=== PATIENT | male | born 1990 | race African-American/Black ===

== ENCOUNTER → 2016-12-31 | Outpatient (CLI) | payer MEDICAID ==
[2016-12-31 11:47] LABS: ABSOLUTE EOSINOPHILS # (AUTO) 0.1 10^3/uL (0.0-0.6); ABSOLUTE LYMPHOCYTES (AUTO) 1.9 10^3/uL (0.5-4.7); ABSOLUTE MONOCYTES (AUTO) 0.4 10^3/uL (0.1-1.4); ABSOLUTE NEUT (AUTO) 3.7 10^3/uL (1.7-8.2); BASOPHILS % (AUTO) 0.6 % (0-2); EOSINOPHILS % (AUTO) 1.1 % (0-6); HEMATOCRIT 39.7 % (37.9-51.0); HEMOGLOBIN 13.1 g/dL (13.5-17.0); HGB HCT DIFFERENCE -0.4; LYMPHOCYTES % (AUTO) 30.8 % (13-45); MEAN CORPUSCULAR HEMOGLOBIN 28.8 pg (27.0-33.4); MEAN CORPUSCULAR HGB CONC 33.1 g/dL (32.0-36.0); MEAN CORPUSCULAR VOLUME 87 fl (80-97); MONOCYTES % (AUTO) 6.7 % (3-13); RED BLOOD COUNT 4.56 10^6/uL (4.35-5.55); RED CELL DISTRIBUTION WIDTH 13.6 % (11.5-14.0); SEGMENTED NEUTROPHILS % (AUTO) 60.8 % (42-78); WHITE BLOOD COUNT 6.1 10^3/uL (4.0-10.5)
[2016-12-31 12:05] LABS: ALANINE AMINOTRANSFERASE 23 U/L (21-72); ALBUMIN 4.1 g/dL (3.5-5.0); ALKALINE PHOSPHATASE 126 U/L (38-126); ANION GAP 11 (5-19); ASPARTATE AMINO TRANSFERASE 9 U/L (17-59); BILIRUBIN,TOTAL 0.4 mg/dL (0.2-1.3); BLOOD UREA NITROGEN 8 mg/dL (7-20); C-REACTIVE PROTEIN 21.9 mg/L (<10.0); CARBON DIOXIDE 28 mmol/L (22-30); CHLORIDE 102 mmol/L (98-107); CREATININE RESULT 0.56 mg/dL (0.52-1.25); GLUCOSE 86 mg/dL (75-110); POTASSIUM 4.8 mmol/L (3.6-5.0); SODIUM 140.6 mmol/L (137-145)
[2016-12-31 12:28] LABS: ERYTHROCYTE SEDIMENTATION RATE 50 mm/hr (0-15)
== END ==
LOC: OD 10:50
PROVIDERS: ATTEND Nurse Practitioner Family
DX: L89.314 Pressure ulcer of right buttock, stage 4 (principal); L89.324 Pressure ulcer of left buttock, stage 4; L97.512 Non-pressure chronic ulcer of other part of right foot with fat layer exposed
CPT/HCPCS: 36415; 72170; 80053; 85025; 85652; 86140

== ENCOUNTER → 2017-01-20 | Outpatient (CLI) | payer MEDICAID | LOC: RAD 11:30 | PROVIDERS: ATTEND Nurse Practitioner Family | DX: L89.314 Pressure ulcer of right buttock, stage 4 (principal); L97.512 Non-pressure chronic ulcer of other part of right foot with fat layer exposed | CPT/HCPCS: 72197; A9576 ==

== ENCOUNTER → 2017-01-21 | Outpatient (CLI) | payer MEDICAID | LOC: RAD 11:19 | PROVIDERS: ATTEND Nurse Practitioner Family | DX: L89.314 Pressure ulcer of right buttock, stage 4 (principal); L97.512 Non-pressure chronic ulcer of other part of right foot with fat layer exposed; M86.8X7 Other osteomyelitis, ankle and foot | CPT/HCPCS: 73720; A9576 ==

== ENCOUNTER 2017-01-29 10:09 | Day surgery (SDC) | payer MEDICAID ==
[2017-01-29 11:51] VITALS: BP 117/67
[2017-01-29] MEDS ORDERED: VANCOMYCIN HCL 1,000 MG in DEXTROSE 5%-WATER 250 ML IV PRN (13:00)
[2017-01-29] MEDS ORDERED: CEFEPIME HCL 2 GM in DEXTROSE 5%-WATER 100 ML IV PRN (13:00)
[2017-01-29] MEDS ORDERED: NORMAL SALINE 10 ML SDV (AFTER EACH USE) IV PRN (13:36)
[2017-01-29] MEDS ORDERED: NORMAL SALINE 10 ML SDV (SCHEDULED) IV SCH (22:00)
== END 2017-01-29 15:25 | disposition home or self-care (01) ==
LOC: RAD 10:09
PROVIDERS: ATTEND Nurse Practitioner Family
PROC: 05HB33Z Insertion of Infusion Device into Right Basilic Vein, Percutaneous Approach (ICD-10-PCS; principal; 2017-01-29)
DX: M86.159 Other acute osteomyelitis, unspecified femur (principal)
CPT/HCPCS: 96375; 96365; 36569; 77001; 76937; J0692; J7060; J3370; J1642

== ENCOUNTER 2017-02-14 10:07 | Emergency (ER) | payer MEDICAID ==
--- NOTE | 2017-02-14 10:45 | ER Document Report ---
ED Medical Screen (RME) - General Chief Complaint: Abdominal Pain Stated Complaint: POSSIBLE ABSCESS Time seen by provider: 10:43 Mode of Arrival: Wheelchair Information source: Patient Notes: 26-year-old paraplegic had to manually help extract a constipated poop ball from his left stoma an hour and a half ago. After that something dark and red protruded from the stoma center which is not particularly tender. He does think there is more tenderness than usual around his stoma and he thinks his stoma is larger and is friable now and oozing blood. TRAVEL OUTSIDE OF THE [place] IN LAST 30 DAYS: No - Related Data Allergies/Adverse Reactions: vancomycin Allergy (Verified 02/14/17 10:15) Past Medical History - Past Medical History Cardiac Medical History: Denies: Hx Coronary Artery Disease, Hx Heart Attack, Hx Hypertension Pulmonary Medical History: Denies: Hx Asthma, Hx Bronchitis, Hx COPD, Hx Pneumonia Neurological Medical History: Denies: Hx Cerebrovascular Accident, Hx Seizures Renal/ Medical History: Denies: Hx Peritoneal Dialysis Musculoskeltal Medical History: Denies Hx Arthritis - Immunizations Hx Diphtheria, Pertussis, Tetanus Vaccination: No Physical Exam - Vital signs Vitals: Temp Pulse Resp BP Pulse Ox 97.4 F 63 18 112/69 100 02/14/17 10:15 02/14/17 10:15 02/14/17 10:15 02/14/17 10:15 02/14/17 10:15 Course - Vital Signs Vital signs: Temp Pulse Resp BP Pulse Ox 97.4 F 63 18 112/69 100 02/14/17 10:15 02/14/17 10:15 02/14/17 10:15 02/14/17 10:15 02/14/17 10:15
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
[2017-02-14 12:27] VITALS: BP 113/56
== END 2017-02-14 12:33 | disposition home or self-care (01) ==
LOC: ER 10:07
DX: K94.09 Other complications of colostomy (principal); K59.00 Constipation, unspecified; R10.9 Unspecified abdominal pain; F17.210 Nicotine dependence, cigarettes, uncomplicated
CPT/HCPCS: 74022; 99283

== ENCOUNTER 2017-03-19 10:20 | Emergency (ER) | payer MEDICAID ==
[2017-03-19 10:28] VITALS: BP 126/73
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
== END 2017-03-19 10:48 | disposition home or self-care (01) ==
LOC: ER 10:20
DX: T82.898A Other specified complication of vascular prosthetic devices, implants and grafts, initial encounter (principal); F17.200 Nicotine dependence, unspecified, uncomplicated
CPT/HCPCS: 99283

== ENCOUNTER → 2017-04-08 | Outpatient (CLI) | payer MEDICAID ==
--- NOTE | 2017-04-08 12:38 | RADIOLOGY REPORT (SQ) ---
EXAM DESCRIPTION: MRI PELVIS COMBO COMPLETED DATE/TIME: 04/08/2017 11:31 am REASON FOR STUDY: PRESSURE ULCER R/L BUTTOCK STAGE 4 L89.314 PRESSURE ULCER OF RIGHT BUTTOCK, STAGE 4 L89.324 PRESSURE ULCER OF LEFT BUTTOCK, STAGE 4 COMPARISON: MRI pelvis 01/20/2017 CT pelvis 10/12/2010 TECHNIQUE: Multiplanar multisequence imaging performed without and with contrast including axial, sa gittal and coronal T2, axial T, axial gradient fat sat T1, axial, sagittal and coronal fat sat T2 pos t contrast. CONTRAST TYPE AND DOSE: 10 mL Prohance. RENAL FUNCTION: GFR > 60. LIMITATIONS: None. FINDINGS: The patient has bilateral ischial decubitus ulcers. On the right side, appearance of the ulcer and bony hemipelvis is similar compared to 01/21/2017. Th ere is a 4 cm ischial ulcer extending down to the bony surface. There is persistent edema and enhanc ement in the posterior half of the right acetabulum and right ischium. No right hip joint effusion. Overall decrease in soft tissue swelling around the right ischial ulcer, and decrease in contrast enh ancement and asymmetric enlargement of the right obturator internus muscle. The enlarged right pelvi c lymph nodes seen on 01/20/2017 are no longer present. On the left side, a 4 cm ischial decubitus ulcer is present (was 2.5 cm on 01/21/2017). The ulcer is filled with fluid and air with a peripheral rim of enhancement which is more prominent than on the pr ior study from 01/20/2017. There is mild enhancement of obturator internus muscle without deep pelvic abscess. Muscle enhancement is new compared to 01/21/2017. No significant left pelvic adenopathy. There is very subtle contrast enhancement of the posterior ischium adjacent to the ulcer. No left hi p joint effusion. IMPRESSION: Bilateral ischial decubital ulcers as above. TECHNICAL DOCUMENTATION: JOB ID: [id number] [employer]- All Rights Reserved
== END ==
LOC: RAD 09:28
PROVIDERS: ATTEND Nurse Practitioner Family
DX: L89.314 Pressure ulcer of right buttock, stage 4 (principal); L89.324 Pressure ulcer of left buttock, stage 4
CPT/HCPCS: 72197; A9576

== ENCOUNTER 2017-05-23 16:16 | Inpatient (IN) | payer MEDICAID ==
[2017-05-23] MEDS ORDERED: NORMAL SALINE 1000 ML 1,000 ML IV PRN (16:57)
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
[2017-05-23 17:43] LABS: HEMATOCRIT 42.8 % (37.9-51.0); HEMOGLOBIN 14.3 g/dL (13.5-17.0); HGB HCT DIFFERENCE 0.1; MEAN CORPUSCULAR HEMOGLOBIN 29.3 pg (27.0-33.4); MEAN CORPUSCULAR HGB CONC 33.4 g/dL (32.0-36.0); MEAN CORPUSCULAR VOLUME 88 fl (80-97); RED BLOOD COUNT 4.88 10^6/uL (4.35-5.55); RED CELL DISTRIBUTION WIDTH 13.9 % (11.5-14.0)
[2017-05-23 17:55] LABS: ALANINE AMINOTRANSFERASE 22 U/L (21-72); ALBUMIN 4.3 g/dL (3.5-5.0); ALKALINE PHOSPHATASE 159 U/L (38-126); ANION GAP 15 (5-19); ASPARTATE AMINO TRANSFERASE 20 U/L (17-59); BILIRUBIN,DIRECT 0.5 mg/dL (0.0-0.4); BLOOD UREA NITROGEN 8 mg/dL (7-20); CALCIUM 9.2 mg/dL (8.4-10.2); CARBON DIOXIDE 29 mmol/L (22-30); CHLORIDE 94 mmol/L (98-107); CREATINE KINASE 67 U/L (55-170); CREATININE RESULT 0.62 mg/dL (0.52-1.25); GLUCOSE 111 mg/dL (75-110); POTASSIUM 4.1 mmol/L (3.6-5.0); SODIUM 137.5 mmol/L (137-145); TOTAL PROTEIN 8.7 g/dL (6.3-8.2)
[2017-05-23 18:00] LABS: BAND NEUTROPHILS % (MANUAL) 10 % (3-5); BASOPHILS % (MANUAL) 0 % (0-2); EOSINOPHILS % (MANUAL) 0 % (0-6); LYMPHOCYTES % (MANUAL) 5 % (13-45); TOTAL CELLS COUNTED 100
[2017-05-23 18:01] LABS: RBC MORPHOLOGY COMMENT NORMO-CYTIC/CHROMIC
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
[2017-05-23] MEDS ORDERED: MECLIZINE HCL 25 MG TABLET PO ONE (20:47)
[2017-05-23 21:20] LABS: AMORPHOUS SEDIMENT,URINE TRACE /HPF; APPEARANCE,URINE SLIGHTLY-CLOUDY; BILIRUBIN,URINE NEGATIVE (NEGATIVE); GLUCOSE, URINE NEGATIVE (NEGATIVE); KETONES,URINE 20 mg/dL (NEGATIVE); LEUKOCYTE ESTERASE,URINE LARGE (NEGATIVE); NITRITE,URINE NEGATIVE (NEGATIVE); PROTEIN,URINE 30 mg/dL (NEGATIVE); URINE SPECIFIC GRAVITY 1.004
[2017-05-23] MEDS ORDERED: CEFTRIAXONE 1 GM/D5W RTU 50 ML IV ONE (21:28)
[2017-05-23 21:30] LABS: VENOUS BLOOD BASE EXCESS 3.9 mmol/L; VENOUS BLOOD PCO2 45.8 mmHg (35-63); VENOUS BLOOD PH 7.42 (7.30-7.42)
[2017-05-24] MEDS ORDERED: MAGNESIUM HYDROXIDE SUSP 30 ML UDCUP PO PRN ×2 (04:58→14:47)
[2017-05-24] MEDS ORDERED: ACETAMINOPHEN 325 MG TABLET PO PRN (04:58)
[2017-05-24] MEDS ORDERED: IPRATROPIUM/ALBUTEROL 0.5-2.5 MG/3 ML AMPUL NEB PRN (04:58)
[2017-05-24] MEDS ORDERED: PROMETHAZINE HCL 25 MG TABLET PO PRN (05:01)
[2017-05-24] MEDS ORDERED: OXYCODONE HCL IR 5 MG TABLET PO PRN (05:04)
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
[2017-05-24 06:54] LABS: ABSOLUTE LYMPHOCYTES (AUTO) 0.8 10^3/uL (0.5-4.7); ABSOLUTE NEUT (AUTO) 8.5 10^3/uL (1.7-8.2); BASOPHILS % (AUTO) 0.3 % (0-2); HEMATOCRIT 38.1 % (37.9-51.0); HEMOGLOBIN 12.9 g/dL (13.5-17.0); HGB HCT DIFFERENCE 0.6; LYMPHOCYTES % (AUTO) 7.7 % (13-45); MEAN CORPUSCULAR HGB CONC 33.8 g/dL (32.0-36.0); MEAN CORPUSCULAR VOLUME 89 fl (80-97); MONOCYTES % (AUTO) 9.7 % (3-13); RED BLOOD COUNT 4.29 10^6/uL (4.35-5.55); RED CELL DISTRIBUTION WIDTH 13.7 % (11.5-14.0); SEGMENTED NEUTROPHILS % (AUTO) 82.3 % (42-78); WHITE BLOOD COUNT 10.4 10^3/uL (4.0-10.5)
[2017-05-24] MEDS ORDERED: CEFTRIAXONE 1 GM/D5W RTU 50 ML IV SCH (10:00)
[2017-05-24] MEDS: HEPARIN SOD (PORCINE) 5,000 UNIT/ML 1 ML SYRINGE SUBCUT SCH ×2 (10:34→23:40)
[2017-05-24] MEDS: GABAPENTIN 300 MG CAPSULE PO SCH ×2 (10:34→23:36)
--- NOTE | 2017-05-24 12:22 | PDOC PROGRESS REPORT ---
Subjective Progress Note for:: 05/24/17 Subjective:: Patient has no particular complaints other than some back pain which she would like pain medication. Patient denies fever, chills, headache, chest pain, shortness of breath, abdominal pain, nausea, vomiting, diarrhea, constipation. Physical Exam Vital Signs: Temp Pulse Resp BP Pulse Ox 98.0 F 95 12 99/48 L 99 05/24/17 12:00 05/24/17 12:00 05/24/17 12:00 05/24/17 12:00 05/24/17 12:00 Intake & Output 05/23/17 05/24/17 05/25/17 06:59 06:59 06:59 Intake Total 5 118 Output Total 250 Balance 5 -132 GENERAL: No acute distress HEENT: Conjunctiva clear, nonicteric, moist mucous membranes, no JVD, midline trachea RESPIRATORY: Clear to auscultation bilaterally, no wheezes, no rhonchi CARDIAC: Regular rate and rhythm, no murmurs/gallops/rubs ABDOMEN: Soft, nondistended, nontender, positive bowel sounds, no rebound, no guarding EXTREMETIES: No edema, cyanosis, clubbing NEUROLOGIC: Alert, oriented to person/place/time, CN's grossly intact, paraplegia SKIN: stage III right buttock decubitus, stage III left buttock decubitus. Small clean ulcer at tip of right great toe. PSYCH: Normal mood, normal affect Results Laboratory Results: 05/24/17 06:25 05/24/17 06:25 WBC 10.4 RBC 4.29 L Hgb 12.9 L Hct 38.1 MCV 89 MCH 30.0 MCHC 33.8 RDW 13.7 Plt Count 164 Seg Neutrophils % 82.3 H Lymphocytes % 7.7 L Monocytes % 9.7 Eosinophils % 0.0 Basophils % 0.3 Absolute Neutrophils 8.5 H Absolute Lymphocytes 0.8 Absolute Monocytes 1.0 Absolute Eosinophils 0.0 Absolute Basophils 0.0 05/24/17 03:15 Blood Culture - Pending Blood 05/24/17 03:06 Blood Culture - Pending Blood 05/23/17 21:00 Urine Culture - Preliminary Catheterized Urine Gram Negative Rods Assessment & Plan - Diagnosis (1) Sepsis Is this a current diagnosis for this admission?: YesPlan: Patient now afebrile with normal white blood count. Secondary to urinary tract infection. (2) UTI (urinary tract infection) Qualifiers: Urinary tract infection type: site unspecified Is this a current diagnosis for this admission?: YesPlan: Complicated by self-catheterization secondary to paraplegia. Continue IV Rocephin pending further culture and sensitivity. (3) Paraplegia at T9 level Is this a current diagnosis for this admission?: Yes (4) Chronic ulcer of right great toe Qualifiers: Non-pressure ulcer stage: unspecified non-pressure ulcer stage Qualified Code(s): L97.519 - Non-pressure chronic ulcer of other part of right foot with unspecified severity Is this a current diagnosis for this admission?: Yes (5) Decubitus ulcer of left buttock, stage 3 Is this a current diagnosis for this admission?: YesPlan: Patient is followed by wound clinic as an outpatient. (6) Decubitus ulcer of right buttock, stage 3 Is this a current diagnosis for this admission?: Yes - Time Time Spent with patient: 25-34 minutes Anticipated discharge: Home
[2017-05-24] MEDS: OXYCODONE HCL IR 5 MG TABLET PO PRN (20:55)
[2017-05-24] MEDS: ZOLPIDEM TARTRATE 5 MG TABLET PO PRN (23:38)
[2017-05-25 06:32] LABS: HEMATOCRIT 34.6 % (37.9-51.0); HEMOGLOBIN 11.8 g/dL (13.5-17.0); HGB HCT DIFFERENCE 0.8; MEAN CORPUSCULAR HEMOGLOBIN 29.9 pg (27.0-33.4); MEAN CORPUSCULAR HGB CONC 34.1 g/dL (32.0-36.0); MEAN CORPUSCULAR VOLUME 88 fl (80-97); RED BLOOD COUNT 3.95 10^6/uL (4.35-5.55); RED CELL DISTRIBUTION WIDTH 13.8 % (11.5-14.0); WHITE BLOOD COUNT 8.3 10^3/uL (4.0-10.5)
[2017-05-25 06:35] LABS: ANION GAP 9 (5-19); BLOOD UREA NITROGEN 6 mg/dL (7-20); CALCIUM 8.5 mg/dL (8.4-10.2); CARBON DIOXIDE 29 mmol/L (22-30); CHLORIDE 95 mmol/L (98-107); CREATININE RESULT 0.66 mg/dL (0.52-1.25); GLUCOSE 106 mg/dL (75-110); POTASSIUM 3.2 mmol/L (3.6-5.0); SODIUM 132.7 mmol/L (137-145)
[2017-05-25 06:52] LABS: BAND NEUTROPHILS % (MANUAL) 1 % (3-5); BASOPHILS % (MANUAL) 0 % (0-2); EOSINOPHILS % (MANUAL) 0 % (0-6); LYMPHOCYTES % (MANUAL) 19 % (13-45); TOTAL CELLS COUNTED 100
[2017-05-25 06:55] LABS: ANISOCYTOSIS SLIGHT; TOXIC GRANULATION 1+
[2017-05-25] MEDS ORDERED: POTASSIUM CHLORIDE 10 MEQ TABLET.SA PO ONE (08:30)
[2017-05-25] MEDS: HEPARIN SOD (PORCINE) 5,000 UNIT/ML 1 ML SYRINGE SUBCUT SCH ×2 (09:04→22:03)
[2017-05-25] MEDS: GABAPENTIN 300 MG CAPSULE PO SCH ×2 (09:04→22:01)
[2017-05-25] MEDS: DOCUSATE SODIUM 100 MG CAPSULE PO SCH ×2 (09:05→17:17)
[2017-05-25] MEDS: PIPERACILLIN SODIUM/TAZOBACTAM 4.5 GM in NORMAL SALINE 100 ML IV SCH ×3 (09:59→20:25)
[2017-05-25] MEDS ORDERED: POTASSIUM CHLORIDE 10 MEQ TABLET.SA PO SCH (10:00)
[2017-05-25] MEDS ORDERED: POTASSIUM CHLORIDE 10 MEQ TABLET.SA PO PRN (10:00)
[2017-05-25] MEDS: OXYCODONE HCL IR 5 MG TABLET PO PRN ×2 (10:40→20:26)
[2017-05-25] MEDS ORDERED: BACLOFEN 10 MG TABLET PO PRN (11:28)
--- NOTE | 2017-05-25 16:40 | PDOC PROGRESS REPORT ---
Subjective Progress Note for:: 05/25/17 Subjective:: Patient reports that his mother helps him with his dressing changes at home. He does self cath at home. Patient denies chest pain, shortness of breath, abdominal pain, nausea, vomiting , fevers, chills, diarrhea, constipation, headache, new onset weakness. Patient does complain of some back pain that is slightly worse on the right than left. Physical Exam Vital Signs: Temp Pulse Resp BP Pulse Ox 99.0 F 99 18 109/65 100 05/25/17 03:09 05/25/17 03:09 05/25/17 03:09 05/25/17 03:09 05/25/17 03:09 Intake & Output 05/24/17 05/25/17 05/26/17 06:59 06:59 06:59 Intake Total 5 1003 Output Total 550 Balance 5 453 Weight 49.8 kg Exam: General: Emaciated, Awake alert and oriented x3, no acute respiratory distress HEENT: AT/NC, PERRL, EOMI, oropharynx is moist, pink, no scleral icterus, no conjunctival injection Neck: No JVD, trachea midline Chest: Clear to auscultation bilaterally, no wheezes rhonchi or rales CV: Regular rate and rhythm, normal S1 and S2, no murmur, rub, or gallop Abdomen: Soft, nontender to palpation, nondistended, active bowel sounds; ostomy located in left lower quadrant with brown soft stool, no rebound, rigidity, or guarding Extremities: No cyanosis, clubbing or edema; bilateral lower extremity muscle wasting Neuro: Cranial nerves II through XII are grossly intact without focal deficits; awake alert and oriented x3; paraplegia Psych: Normal mood and affect Skin: 2 discrete sacral decubitus ulcers stage III, well-healing, no erythema or exudate Results Laboratory Results: 05/25/17 05:43 05/25/17 05:43 05/25/17 05/25/17 05:43 05:43 WBC 8.3 RBC 3.95 L Hgb 11.8 L Hct 34.6 L MCV 88 MCH 29.9 MCHC 34.1 RDW 13.8 Plt Count 140 L Seg Neutrophils % Not Reportable Lymphocytes % Not Reportable Monocytes % Not Reportable Eosinophils % Not Reportable Basophils % Not Reportable Absolute Neutrophils Not Reportable Absolute Lymphocytes Not Reportable Absolute Monocytes Not Reportable Absolute Eosinophils Not Reportable Absolute Basophils Not Reportable Sodium 132.7 L Potassium 3.2 L Chloride 95 L Carbon Dioxide 29 Anion Gap 9 BUN 6 L Creatinine 0.66 Est GFR ( Amer) > 60 Est GFR (Non-Af Amer) > 60 Glucose 106 Calcium 8.5 Assessment & Plan - Diagnosis (1) Sepsis Qualifiers: Sepsis type: sepsis due to unspecified organism Qualified Code(s): A41.9 - Sepsis, unspecified organism Is this a current diagnosis for this admission?: YesPlan: Patient with gram-negative rods in both blood and urine likely secondary to self -catheterization with acute pyelonephritis. Broaden patient's Bactrim to include Zosyn. Patient was having low-grade fevers up to 100.5 overnight. (2) Pyelonephritis, acute Is this a current diagnosis for this admission?: YesPlan: Currently pending ID and sensitivity. Patient on Zosyn. Previously on Rocephin (3) UTI (urinary tract infection) Qualifiers: Urinary tract infection type: site unspecified Is this a current diagnosis for this admission?: YesPlan: See #1 and 2. Currently pending ID and sensitivity. Patient on Zosyn. Previously on Rocephin (4) Paraplegia at T9 level Is this a current diagnosis for this admission?: YesPlan: Continue gabapentin. Add baclofen prn spasm (5) Chronic ulcer of right great toe Qualifiers: Non-pressure ulcer stage: unspecified non-pressure ulcer stage Qualified Code(s): L97.519 - Non-pressure chronic ulcer of other part of right foot with unspecified severity Is this a current diagnosis for this admission?: YesPlan: Cleanse daily with equal parts chlorhexidine and sterile water. Dry dressing. (6) Decubitus ulcer of left buttock, stage 3 Is this a current diagnosis for this admission?: YesPlan: Cleanse daily with equal parts chlorhexidine and sterile water. Dry dressing. (7) Decubitus ulcer of right buttock, stage 3 Is this a current diagnosis for this admission?: YesPlan: Cleanse daily with equal parts chlorhexidine and sterile water. Dry dressing. (8) Insomnia Qualifiers: Insomnia type: unspecified Qualified Code(s): G47.00 - Insomnia, unspecified Is this a current diagnosis for this admission?: YesPlan: Ambien as needed insomnia (9) Asthma Qualifiers: Asthma severity: mild intermittent Is this a current diagnosis for this admission?: YesPlan: Albuterol as needed (10) Malnourished Is this a current diagnosis for this admission?: YesPlan: consult dietary concern for worsening bed sores and poor wound healing because of this and predisposition to infection - Time Time Spent with patient: 25-34 minutes Medications reviewed and adjusted accordingly: Yes Anticipated discharge: Home Within: within 48 hours - Inpatient Certification Based on my medical assessment, after consideration of the patient's comorbidities, presenting symptoms, or acuity I expect that the services needed warrant INPATIENT care.: Yes I certify that my determination is in accordance with my understanding of Medicare's requirements for reasonable and necessary INPATIENT services [42 CFR 412.3e].: Yes Medical Necessity: Need For IV Fluids, Need for IV Antibiotics Post Hospital Care: D/C Sales Contract Administrator Documentation
[2017-05-26] MEDS: ZOLPIDEM TARTRATE 5 MG TABLET PO PRN (00:10)
[2017-05-26] MEDS: PIPERACILLIN SODIUM/TAZOBACTAM 4.5 GM in NORMAL SALINE 100 ML IV SCH ×2 (03:21→09:51)
[2017-05-26] MEDS: DOCUSATE SODIUM 100 MG CAPSULE PO SCH ×2 (09:51→17:07)
[2017-05-26] MEDS: GABAPENTIN 300 MG CAPSULE PO SCH ×2 (09:51→23:50)
[2017-05-26] MEDS: HEPARIN SOD (PORCINE) 5,000 UNIT/ML 1 ML SYRINGE SUBCUT SCH ×2 (09:51→23:51)
[2017-05-26 09:59] LABS: ABSOLUTE EOSINOPHILS # (AUTO) 0.1 10^3/uL (0.0-0.6); ABSOLUTE LYMPHOCYTES (AUTO) 0.6 10^3/uL (0.5-4.7); ABSOLUTE MONOCYTES (AUTO) 0.7 10^3/uL (0.1-1.4); ABSOLUTE NEUT (AUTO) 2.6 10^3/uL (1.7-8.2); EOSINOPHILS % (AUTO) 1.6 % (0-6); HEMATOCRIT 38.9 % (37.9-51.0); HGB HCT DIFFERENCE 0.1; LYMPHOCYTES % (AUTO) 14.4 % (13-45); MEAN CORPUSCULAR HEMOGLOBIN 29.5 pg (27.0-33.4); MEAN CORPUSCULAR HGB CONC 33.5 g/dL (32.0-36.0); MEAN CORPUSCULAR VOLUME 88 fl (80-97); MONOCYTES % (AUTO) 17.1 % (3-13); RED BLOOD COUNT 4.42 10^6/uL (4.35-5.55); RED CELL DISTRIBUTION WIDTH 14.2 % (11.5-14.0); SEGMENTED NEUTROPHILS % (AUTO) 65.9 % (42-78); WHITE BLOOD COUNT 3.9 10^3/uL (4.0-10.5)
[2017-05-26 10:16] LABS: ANION GAP 10 (5-19); BLOOD UREA NITROGEN 7 mg/dL (7-20); CALCIUM 9.2 mg/dL (8.4-10.2); CARBON DIOXIDE 33 mmol/L (22-30); CHLORIDE 96 mmol/L (98-107); CREATININE RESULT 0.71 mg/dL (0.52-1.25); GLUCOSE 102 mg/dL (75-110); MAGNESIUM 2.4 mg/dL (1.6-2.3); POTASSIUM 3.8 mmol/L (3.6-5.0); SODIUM 138.7 mmol/L (137-145)
[2017-05-26] MEDS ORDERED: PHARMACY COMMUNICATION ORDER MC NR (10:45)
--- NOTE | 2017-05-26 12:18 | RADIOLOGY REPORT (SQ) ---
EXAM DESCRIPTION: PICC INSERTION; U/S GUIDE FOR VASCULAR ACCESS; FLUORO/CV PLACEMENT COMPLETED DATE/TIME: 05/26/2017 12:08 pm; 05/26/2017 12:09 pm REASON FOR STUDY: need for ivabx; NEED FOR IV ABX COMPARISON: None. FLUOROSCOPY TIME: 0.1 minutes 2 images saved to PACS. TECHNIQUE: Fluoroscopic and ultrasound guided PICC placement. LIMITATIONS: None. PROCEDURE: After written consent and assessment were obtained, the patient was brought into the fluo roscopy room and place supine on the table. Ultrasound was used on the patient's left arm for PICC a ccess. The left arm was prepped and draped in a sterile fashion along with the ultrasound probe. The entry site was anesthetized with 1% lidocaine. A 21 gauge 7 cm needle was advanced through the skin a nd into the basilic vein under live ultrasound guidance. An ultrasound image was saved to PACS confi rming access site. A .018 guide wire was then inserted through the needle and into the venous system . The needle was the removed and an 11 blade scalpel was used to make a 1 cm skin incision. A 5 fr p eel-away sheath was advanced over the wire and into the venous system. A measurement was then made us ing the existing wire and live fluoroscopic guidance. The wire was then removed and the trimmed. The PICC was advanced through the peel-away sheath and into the venous system. The peel-away sheath was r emoved and the catheter was adhered to the patients arm with a stat lock. The catheter was then aspir ated and flushed and a sterile bandage was placed over the access site. A fluoroscopic spot image wa s saved to PACS confirming the catheter tip within the cavoatrial junction. IMPRESSION: Placement OF A 5 FR SINGLE LUMEN 40 CM PICC IN THE LEFT BASILIC VEIN. COMMENT: Patient medication list reviewed: Yes- Quality ID# [id number]:Eligible professional attests to doc umenting in the medical record they obtained, updated, or reviewed the patient's current medications. . Quality ID 145: Final reports for procedures using fluoroscopy that document radiation exposure salvatore estefany, or exposure time and number of fluorographic images (if radiation exposure indices are not avail able) Quality ID #76: The patient was prepped and draped using maximum sterile barrier technique including cap, mask, sterile gown, sterile gloves, a large sterile sheet, hand hygiene, and 2% Chlorhexidine fo r cutaneous antisepsis. When ultrasound is used, sterile ultrasound techniques are followed requiring sterile gel and sterile probes. TECHNICAL DOCUMENTATION: JOB ID: [id number] [employer]- All Rights Reserved
[2017-05-26] MEDS ORDERED: NORMAL SALINE 10 ML SDV (AFTER EACH USE) IV PRN (12:25)
[2017-05-26] MEDS: ERTAPENEM SODIUM 1 GM in NORMAL SALINE 50 ML IV SCH (13:56)
[2017-05-26] MEDS: ASCORBIC ACID 500 MG TABLET PO SCH (18:24)
[2017-05-26] MEDS: OXYCODONE HCL IR 5 MG TABLET PO PRN (18:29)
--- NOTE | 2017-05-26 18:49 | PDOC PROGRESS REPORT ---
Subjective Progress Note for:: 05/26/17 Subjective:: Patient reports he is feeling significantly better than yesterday. He reports his back pain has improved. Patient denies chest pain, shortness of breath, abdominal pain, nausea, vomiting , fevers, chills, diarrhea, constipation, headache, new onset weakness. Move his legs and feet patient is able to and can nearely stand. Physical Exam Vital Signs: Temp Pulse Resp BP Pulse Ox 98.3 F 75 16 97/46 L 100 05/26/17 15:05 05/26/17 15:05 05/26/17 15:05 05/26/17 15:05 05/26/17 15:05 Intake & Output 05/25/17 05/26/17 05/27/17 06:59 06:59 06:59 Intake Total 1403 2970 Output Total 1625 1900 Balance -222 1070 Weight 49.8 kg 49.7 kg Exam: General: Emaciated, Awake alert and oriented x3, no acute respiratory distress HEENT: AT/NC, PERRL, EOMI, oropharynx is moist, pink, no scleral icterus, no conjunctival injection Neck: No JVD, trachea midline Chest: Clear to auscultation bilaterally, no wheezes rhonchi or rales CV: Regular rate and rhythm, normal S1 and S2, no murmur, rub, or gallop Abdomen: Soft, nontender to palpation, nondistended, active bowel sounds; ostomy located in left lower quadrant with brown soft stool, no rebound, rigidity, or guarding Extremities: No cyanosis, clubbing or edema; bilateral lower extremity muscle wasting Neuro: Cranial nerves II through XII are grossly intact without focal deficits; awake alert and oriented x3; profound bilateral lower extremity muscle weakness 3- out of 5 Psych: Normal mood and affect Skin: 2 discrete sacral decubitus ulcers stage III, well-healing, no erythema or exudate Results Laboratory Results: 05/26/17 09:39 05/26/17 09:39 05/26/17 05/26/17 09:39 09:39 WBC 3.9 L RBC 4.42 Hgb 13.0 L Hct 38.9 MCV 88 MCH 29.5 MCHC 33.5 RDW 14.2 H Plt Count 199 Seg Neutrophils % 65.9 Lymphocytes % 14.4 Monocytes % 17.1 H Eosinophils % 1.6 Basophils % 1.0 Absolute Neutrophils 2.6 Absolute Lymphocytes 0.6 Absolute Monocytes 0.7 Absolute Eosinophils 0.1 Absolute Basophils 0.0 Sodium 138.7 Potassium 3.8 Chloride 96 L Carbon Dioxide 33 H Anion Gap 10 BUN 7 Creatinine 0.71 Est GFR ( Amer) > 60 Est GFR (Non-Af Amer) > 60 Glucose 102 Calcium 9.2 Magnesium 2.4 H Impressions: Guidance Fluoroscopy 05/26/17 00:00 IMPRESSION: Placement OF A 5 FR SINGLE LUMEN 40 CM PICC IN THE LEFT BASILIC VEIN. Interventional Vascular Procedure 05/26/17 00:00 IMPRESSION: Placement OF A 5 FR SINGLE LUMEN 40 CM PICC IN THE LEFT BASILIC VEIN. PICC Line Insertion 05/26/17 00:00 IMPRESSION: Placement OF A 5 FR SINGLE LUMEN 40 CM PICC IN THE LEFT BASILIC VEIN. Assessment & Plan - Diagnosis (1) Sepsis Qualifiers: Sepsis type: Escherichia coli Qualified Code(s): A41.51 - Sepsis due to Escherichia coli [E. coli] Is this a current diagnosis for this admission?: YesPlan: Secondary to ESBL E. coli UTI and bacteremia (2) Pyelonephritis, acute Is this a current diagnosis for this admission?: YesPlan: Bacteremia and UTI now with ESBL E. coli patient now on Invanz. (3) UTI (urinary tract infection) Qualifiers: Urinary tract infection type: site unspecified Is this a current diagnosis for this admission?: YesPlan: See #1 and 2. transition patient to Invanz and placed PICC line (4) Paraplegia at T9 level Is this a current diagnosis for this admission?: YesPlan: Patient is apparently not a paraplegic as he can volitionally move his extremities and he also reports that he is able to get and maintain an erection. I strongly recommend that he follows with Dr. Rawls in [facility] of [facility]. (5) Chronic ulcer of right great toe Qualifiers: Non-pressure ulcer stage: unspecified non-pressure ulcer stage Qualified Code(s): L97.519 - Non-pressure chronic ulcer of other part of right foot with unspecified severity Is this a current diagnosis for this admission?: Yes (6) Decubitus ulcer of left buttock, stage 3 Is this a current diagnosis for this admission?: YesPlan: Cleanse daily with equal parts chlorhexidine and sterile water. Dry dressing. (7) Decubitus ulcer of right buttock, stage 3 Is this a current diagnosis for this admission?: YesPlan: Cleanse daily with equal parts chlorhexidine and sterile water. Dry dressing. (8) Insomnia Qualifiers: Insomnia type: unspecified Qualified Code(s): G47.00 - Insomnia, unspecified Is this a current diagnosis for this admission?: Yes (9) Asthma Qualifiers: Asthma severity: mild intermittent Is this a current diagnosis for this admission?: Yes (10) Malnourished Is this a current diagnosis for this admission?: YesPlan: Appreciate dietary concern for worsening bed sores and poor wound healing because of this and predisposition to infection add Charanjit, Ensure, and Magic cup
[2017-05-26] MEDS: NORMAL SALINE 10 ML SDV (SCHEDULED) IV SCH (23:52)
[2017-05-27 06:22] LABS: HEMOGLOBIN 12.3 g/dL (13.5-17.0); HGB HCT DIFFERENCE 0.9; MEAN CORPUSCULAR HEMOGLOBIN 29.7 pg (27.0-33.4); MEAN CORPUSCULAR HGB CONC 34.2 g/dL (32.0-36.0); MEAN CORPUSCULAR VOLUME 87 fl (80-97); RED BLOOD COUNT 4.15 10^6/uL (4.35-5.55); RED CELL DISTRIBUTION WIDTH 13.8 % (11.5-14.0); WHITE BLOOD COUNT 4.7 10^3/uL (4.0-10.5)
[2017-05-27 06:43] LABS: BASOPHILS % (MANUAL) 0 % (0-2); EOSINOPHILS % (MANUAL) 4 % (0-6); LYMPHOCYTES % (MANUAL) 43 % (13-45); TOTAL CELLS COUNTED 100
[2017-05-27 06:44] LABS: RBC MORPHOLOGY COMMENT NORMO-CYTIC/CHROMIC; TOXIC VACUOLATION PRESENT
[2017-05-27 08:42] VITALS: BP 100/60
[2017-05-27] MEDS ORDERED: MULTIVITAMINS W-IRON TABLET, CHEWABLE PO SCH (10:00)
[2017-05-27] MEDS ORDERED: ZINC SULFATE 220 MG CAPSULE PO SCH (10:00)
[2017-05-27] MEDS: ASCORBIC ACID 500 MG TABLET PO SCH (10:55)
[2017-05-27] MEDS: GABAPENTIN 300 MG CAPSULE PO SCH (10:56)
[2017-05-27] MEDS: NORMAL SALINE 10 ML SDV (SCHEDULED) IV SCH (10:56)
[2017-05-27] MEDS: DOCUSATE SODIUM 100 MG CAPSULE PO SCH (11:01)
[2017-05-27] MEDS: HEPARIN SOD (PORCINE) 5,000 UNIT/ML 1 ML SYRINGE SUBCUT SCH (11:01)
[2017-05-27] MEDS: ERTAPENEM SODIUM 1 GM in NORMAL SALINE 50 ML IV SCH (11:04)
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
== END 2017-05-27 13:54 | disposition home or self-care (01) | DRG 871 ==
LOC: ER 16:16 → EH 22:15 → UNDOADMIN 22:15 → 3S 05-24 03:30 → EH 05-24 03:30 → 3S 05-24 04:58 → EH 05-24 04:58
PROVIDERS: ADMIT Family Medicine; ATTEND Family Medicine
PROC: 02HV33Z Insertion of Infusion Device into Superior Vena Cava, Percutaneous Approach (ICD-10-PCS; principal; 2017-05-26)
PROC: B548ZZA Ultrasonography of Superior Vena Cava, Guidance (ICD-10-PCS; 2017-05-26)
PROC: B5181ZA Fluoroscopy of Superior Vena Cava using Low Osmolar Contrast, Guidance (ICD-10-PCS; 2017-05-26)
DX: A41.51 Sepsis due to Escherichia coli [E. coli] (principal); L89.323 Pressure ulcer of left buttock, stage 3; L89.313 Pressure ulcer of right buttock, stage 3; N10 Acute pyelonephritis; E46 Unspecified protein-calorie malnutrition; Z68.1 Body mass index [BMI] 19.9 or less, adult; G82.22 Paraplegia, incomplete; B96.29 Other Escherichia coli [E. coli] as the cause of diseases classified elsewhere; F17.210 Nicotine dependence, cigarettes, uncomplicated; G47.00 Insomnia, unspecified; J45.909 Unspecified asthma, uncomplicated; L97.519 Non-pressure chronic ulcer of other part of right foot with unspecified severity; K21.9 Gastro-esophageal reflux disease without esophagitis; F12.90 Cannabis use, unspecified, uncomplicated; W34.00XS Accidental discharge from unspecified firearms or gun, sequela; Z79.899 Other long term (current) drug therapy; Z93.3 Colostomy status; Z87.828 Personal history of other (healed) physical injury and trauma; Z82.49 Family history of ischemic heart disease and other diseases of the circulatory system; Z88.1 Allergy status to other antibiotic agents
CPT/HCPCS: 36415; 36569; 76937; 77001; 80048; 80053; 81001; 82550; 82803; 83605; 83735; 85025; 87040; 87077; 87086; 87088; 87186; 96361; 96374; 99285; J0696; J1335; J1642; J1644; J2543; J3490; J7030

== ENCOUNTER → 2018-09-29 | Outpatient (CLI) | payer MEDICAID ==
--- NOTE | 2018-09-29 13:06 | RADIOLOGY REPORT (SQ) ---
EXAM DESCRIPTION: PELVIS AP COMPLETED DATE/TIME: 09/29/2018 12:58 pm REASON FOR STUDY: PRESSURE ULCER OF RIGHT AND LEFT BUTTOCK, STAGE 4 (L89.314, L89.324) L89.314 PRES SURE ULCER OF RIGHT BUTTOCK, STAGE 4 L89.324 PRESSURE ULCER OF LEFT BUTTOCK, STAGE 4 COMPARISON: None. NUMBER OF VIEWS: One view TECHNIQUE: AP Pelvis LIMITATIONS: None. FINDINGS: MINERALIZATION: Normal. HIPS: No acute fracture or dislocation. No worrisome bone lesions. PELVIS AND SACRUM: No acute fracture or dislocation. No worrisome bone lesions. PUBIS AND ISCHIUM: No acute fracture. LOWER LUMBAR SPINE: Nothing acute. SOFT TISSUES: No foreign body. OTHER: No other significant finding. IMPRESSION: No evidence of osteomyelitis. TECHNICAL DOCUMENTATION: JOB ID: [id number] [employer]- All Rights Reserved Reading location - IP/workstation name: [email or web address]
== END ==
LOC: RAD 12:23
PROVIDERS: ATTEND Surgery
DX: L89.314 Pressure ulcer of right buttock, stage 4 (principal); L89.324 Pressure ulcer of left buttock, stage 4
CPT/HCPCS: 72170

== ENCOUNTER 2018-11-05 13:45 | Emergency (ER) | payer MEDICAID ==
[2018-11-05] MEDS ORDERED: NORMAL SALINE 1000 ML 1,000 ML IV PRN (13:58)
[2018-11-05] MEDS ORDERED: NORMAL SALINE 1000 ML 1,000 ML IV ONE (13:58)
[2018-11-05 14:26] VITALS: BP 117/73
--- NOTE | 2018-11-05 14:29 | RADIOLOGY REPORT (SQ) ---
EXAM DESCRIPTION: KNEE RIGHT 2 VIEWS COMPLETED DATE/TIME: 11/05/2018 2:12 pm REASON FOR STUDY: fall COMPARISON: None. NUMBER OF VIEWS: Two views. TECHNIQUE: AP and lateral radiographic images acquired of the right knee. LIMITATIONS: None. FINDINGS: MINERALIZATION: Osteopenia. BONES: Comminuted, mildly impacted fracture of the distal femur. Possible intra-articular extension at the intercondylar notch. No additional fracture. Knee joint remains approximated. JOINT: No visible effusion. SOFT TISSUES: Mild posterior soft tissue swelling. OTHER: No other significant finding. IMPRESSION: Comminuted, mildly impacted fracture of the distal femur with possible intra-articular e xtension. TECHNICAL DOCUMENTATION: JOB ID: [id number] [email or web address]- All Rights Reserved Reading location - IP/workstation name: [email or web address]
[2018-11-05 14:49] LABS: APPEARANCE,URINE SLIGHTLY-CLOUDY; BILIRUBIN,URINE NEGATIVE (NEGATIVE); COLOR,URINE YELLOW; GLUCOSE, URINE NEGATIVE (NEGATIVE); KETONES,URINE 20 mg/dL (NEGATIVE); LEUKOCYTE ESTERASE,URINE NEGATIVE (NEGATIVE); NITRITE,URINE POSITIVE (NEGATIVE); PROTEIN,URINE 30 mg/dL (NEGATIVE); URINE SPECIFIC GRAVITY 1.018; UROBILINOGEN,URINE NEGATIVE mg/dL (<2.0)
[2018-11-05 15:03] LABS: URINE AMPHETAMINES SCREEN UNCONFIRMED POSITIVE; URINE BARBITURATES SCREEN NEGATIVE; URINE BENZODIAZEPINES SCREEN NEGATIVE; URINE COCAINE SCREEN NEGATIVE; URINE MARIJUANA (THC) SCREEN UNCONFIRMED POSITIVE; URINE METHADONE SCREEN NEGATIVE; URINE PHENCYCLIDINE SCREEN NEGATIVE
[2018-11-05] MEDS ORDERED: CEFTRIAXONE 2 GM/D5W RTU 2 GM/50 ML RTUPB IV ONE (15:22)
[2018-11-05 17:03] LABS: ABSOLUTE NEUT (AUTO) 12.4 10^3/uL (1.7-8.2); BASOPHILS % (AUTO) 0.2 % (0-2); HEMOGLOBIN 11.5 g/dL (13.5-17.0); LYMPHOCYTES % (AUTO) 6.7 % (13-45); MEAN CORPUSCULAR HEMOGLOBIN 29.9 pg (27.0-33.4); MEAN CORPUSCULAR HGB CONC 32.7 g/dL (32.0-36.0); MEAN CORPUSCULAR VOLUME 91 fl (80-97); MONOCYTES % (AUTO) 6.9 % (3-13); PLATELET COUNT 232 10^3/uL (150-450); RED BLOOD COUNT 3.84 10^6/uL (4.35-5.55); RED CELL DISTRIBUTION WIDTH 14.2 % (11.5-14.0); SEGMENTED NEUTROPHILS % (AUTO) 86.2 % (42-78); TOTAL CELLS COUNTED % (AUTO) 100 %; WHITE BLOOD COUNT 14.3 10^3/uL (4.0-10.5)
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
[2018-11-05 17:13] LABS: ALANINE AMINOTRANSFERASE 28 U/L (21-72); ALBUMIN 3.9 g/dL (3.5-5.0); ALKALINE PHOSPHATASE 116 U/L (38-126); ANION GAP 9 (5-19); ASPARTATE AMINO TRANSFERASE 16 U/L (17-59); BILIRUBIN,DIRECT 0.1 mg/dL (0.0-0.4); BILIRUBIN,TOTAL 0.3 mg/dL (0.2-1.3); BLOOD UREA NITROGEN 13 mg/dL (7-20); CALCIUM 8.7 mg/dL (8.4-10.2); CARBON DIOXIDE 27 mmol/L (22-30); CHLORIDE 103 mmol/L (98-107); GLUCOSE 112 mg/dL (75-110); POTASSIUM 3.9 mmol/L (3.6-5.0); SODIUM 138.5 mmol/L (137-145); TOTAL PROTEIN 6.6 g/dL (6.3-8.2)
[2018-11-05 17:17] LABS: ALCOHOL < 10 mg/dL (NONE DETECTED)
== END 2018-11-05 18:54 | disposition home or self-care (01) ==
LOC: ER 13:45
PROC: 2W3LX1Z Immobilization of Right Lower Extremity using Splint (ICD-10-PCS; principal; 2018-11-05)
DX: S72.491A Other fracture of lower end of right femur, initial encounter for closed fracture (principal); N30.00 Acute cystitis without hematuria; M25.561 Pain in right knee; F10.10 Alcohol abuse, uncomplicated; F19.10 Other psychoactive substance abuse, uncomplicated; G82.50 Quadriplegia, unspecified; X58.XXXA Exposure to other specified factors, initial encounter; F17.200 Nicotine dependence, unspecified, uncomplicated; J45.909 Unspecified asthma, uncomplicated
CPT/HCPCS: 99284; 96361; 96365; 36415; 80307 ×2; 85025; 80053; 81001; 73560; 29505; J7030; J0696